=== PATIENT | male | born 1965 | race Caucasian/White ===

== ENCOUNTER 2018-12-14 02:37 | Emergency (ER) | payer MEDICARE, OTHER ==
[2018-12-14] MEDS: HYDROCODONE/APAP (5/325) TAB PO (03:46)
[2018-12-14] MEDS: CLINDAMYCIN 300 MG CAP PO (03:53)
== END 2018-12-14 04:13 | disposition home or self-care (01) ==
LOC: FTE 02:37
DX: K04.7 Periapical abscess without sinus (principal); I10 Essential (primary) hypertension; E11.9 Type 2 diabetes mellitus without complications
CPT/HCPCS: 99283